=== PATIENT | male | born 1995 | race Native Hawaiian/Other Pacific Islander ===

== ENCOUNTER 2016-09-22 21:53 | Emergency (ER) | payer OTHER ==
[~2016-09-22] VITALS: Ht 175.3 cm; Wt 79.4 kg
[2016-09-22 21:58] VITALS: BP 156/104
== END 2016-09-22 22:53 | disposition home or self-care (01) ==
LOC: ER 21:56
DX: L30.9 Dermatitis, unspecified (principal); B35.2 Tinea manuum
CPT/HCPCS: A4606; Z7610